=== PATIENT | female | born 2000 | race Caucasian/White ===

== ENCOUNTER 2019-01-16 10:38 | Inpatient (IN) | payer OTHER ==
[~2019-01-16] VITALS: Ht 152.4 cm; Wt 71.7 kg
[2019-01-16] MEDS ORDERED: SYNTHROID75 MCG PO (11:39)
[2019-01-16] MEDS ORDERED: FOLIC ACID1 MG PO (11:40)
[2019-01-16] MEDS ORDERED: PRENATAL TABLE1 EAC1 PO (11:40)
== END 2019-01-19 10:56 | disposition home or self-care (01) | DRG 788 ==
LOC: LDR 10:38 → OB/GYN 10:38 → O/R 21:13 → OB/GYN 23:52
PROVIDERS: ADMIT Obstetrics & Gynecology
PROC: 4A1HXCZ Monitoring of Products of Conception, Cardiac Rate, External Approach (ICD-10-PCS; 2019-01-16)
PROC: 10D00Z1 Extraction of Products of Conception, Low, Open Approach (ICD-10-PCS; principal; 2019-01-16 20:00)
DX: O76 Abnormality in fetal heart rate and rhythm complicating labor and delivery (principal); Z3A.37 37 weeks gestation of pregnancy; Z37.0 Single live birth; Z22.330 Carrier of Group B streptococcus